=== PATIENT | female | born 1990 | race Caucasian/White ===

== ENCOUNTER 2023-09-16 10:59 | Outpatient (CLI) | payer OTHER, SELFPAY ==
--- NOTE | ~2023-09-16 | US_ITS ---
EXAMINATION: US thyroid DATE: 09/16/2023 11:50 INDICATION: Misty's thyroiditis TECHNIQUE: Multiple ultrasound images of the thyroid were obtained. COMPARISON: None. FINDINGS: The right thyroid lobe measures 4.3 x 1.6 x 1.2 cm. The left thyroid lobe measures 3.5 x 1.2 x 0 poi nt cm. The isthmus measures 0.3 cm. No discrete nodules identified. There is heterogeneously decreas ed echogenicity with coarsened echotexture. IMPRESSION: 1. Heterogeneous decreased axis and coarsened echotexture of the thyroid which would be consistent wi th given history of Misty's thyroiditis. No discrete thyroid nodules. Reviewed, dictated and finalized at location B. IMPRESSION: 1. Heterogeneous decreased axis and coarsened echotexture of the thyroid which would be consistent with given history of Misty's thyroiditis. No discrete thyroid nodules.
== END 2023-09-16 11:00 | disposition home or self-care (01) ==
LOC: ANHIMG 11:02
PROVIDERS: PCP Emergency Medicine; Visit Provider Emergency Medicine
DX: E06.3 Autoimmune thyroiditis (principal)
CPT/HCPCS: 76536

== ENCOUNTER 2023-11-06 11:19 | Emergency (ER) | payer OTHER, SELFPAY ==
[2023-11-06 11:20] VITALS: BP 141/97; PULSE 100; RESP 20; TEMP 36.6; O2SAT 100
--- NOTE | 2023-11-06 11:44 | ED.NAVMDI ---
HPI - Nausea/Vomiting/Diarrhea General Chief complaint: Nausea/Vomiting/Diarrhea Stated complaint: 12 weeks , vomiting, headache, discharge Time Seen by Provider: 11/06/23 11:32 Source: patient Mode of arrival: ambulatory Limitations: no limitations History of Present Illness HPI Narrative: This is a 32-year-old female that presents to the emergency department for nausea and vomiting. Ongoing over the last 5 days. Associated with cough, congestion, sore throat. She is currently 12 weeks . Her OB is Dr. Tanner. Denies fevers. Related Data Home Medications Medication Instructions Recorded Confirmed vits no.126-ferrous fum tablet PO 09/24/23 10/22/23 28 mg iron-folic acid 800 mcg tablet (Classic ) Allergies Allergy/AdvReac Type Severity Reaction Status Date / Time No Known Allergies Allergy Verified 10/22/23 10:00 Review of Systems Review of Systems: CONSTITUTIONAL: Denies fever ENT: Reports congestion, sore throat RESPIRATORY: Reports cough. Denies dyspnea. GASTROINTESTINAL: Reports nausea, vomiting GENITOURINARY: Denies dysuria NEUROLOGIC: Reports headache All systems reviewed & are unremarkable except as noted in HPI and below PMFSH Past Medical History Medical History History of Misty thyroiditis Scar tissue Third degree perineal laceration during delivery with tear of external anal sphincter and internal anal sphincter Family History Family History Father Hypertension Headache Angio-edema Mother Hypertension Headache Congenital defect History of PCOS Sibling Graves disease Autoimmune disorder Social History Social History Smoking status: Never smoker Second hand tobacco smoke exposure: No Alcohol intake: never Substance use: never Substance use type: does not use Do You Feel Safe in your Home?: Yes Lack of Transportation: No Lack of Food: Never True Current Housing: I Have Housing Concerned About Future Housing: No Difficulty Paying Gas/Electric Bills: No Difficulty Paying for Meds: No Currently Unemployed: No Education: Associate Degree Difficulty w/ Childcare or Family Care: No Living arrangements: with family Occupation/Education: unemployed Additional occupation/education comments: stay at home mother. Exam Narrative: GENERAL: Well-appearing, well-nourished, and in no acute distress. HEAD: Normocephalic, atraumatic. EYES: PERRLA and EOMI. ENT: Nares clear, no rhinorrhea or epistaxis. Mucous membranes moist. Oropharynx without tonsillar hypertrophy exudate or other lesions. Bilateral TMs pearly ly non-bulging NECK: Supple. No adenopathy or masses. CHEST: Clear to auscultation. No respiratory distress. No wheezes rales or rhonchi HEART: Regular rate and rhythm. No murmur heard. Normal peripheral pulses. ABDOMEN: Soft, nontender, nondistended, normal active bowel sounds. EXTREMITIES: Normal range of motion. No edema. SKIN: Warm, dry, no rash. NEURO: No focal deficits. Alert and oriented x3. PSYCH: Normal mood and affect Course Course Emergency Course: Patient feeling much better after IV fluids and Reglan. Able to tolerate p.o. challenge Consultations Consultation #1: Spoke with Dr. Tanner about patient and workup who recommends PROM test then patient may follow up in clinic Date: 11/06/23 Vital Signs Vital signs: Vital Signs Temperature 98 F 11/06/23 11:20 Pulse Rate 100 11/06/23 11:20 Respiratory Rate 20 11/06/23 11:20 Blood Pressure 141/97 H 11/06/23 11:20 Pulse Oximetry 100 11/06/23 11:20 Oxygen Delivery Room Air 11/06/23 11:20 Temperature 97.9 F 11/06/23 13:30 Pulse Rate 78 11/06/23 13:30 Respiratory Rate 16 11/06/23 13:30 Blood Pressure 126/80 11/06/23 13:30 Pulse Oximetry
[2023-11-06 11:58] LABS: Basophils Absolute Auto 0.1 K/mm3 (0.0-0.1); Basophils Percent Auto 0.5 % (0.2-1.2); Eosinophils Absolute Auto 0.1 K/mm3 (0-0.3); Eosinophils Percent Auto 0.8 % (0-4.4); Hematocrit 38.6 % (37.0-47.0); Hemoglobin 13.6 g/dL (12.0-15.0); Immature Granulocyte Absolute 0.05 K/mm3 (0.00-0.031); Immature Granulocyte Percent A 0.4 % (0-0.5); Lymphocytes Absolute Auto 1.46 K/mm3 (0.9-3.2); Lymphocytes Percent Auto 10.3 % (18.3-44.2); Mean Corpuscular HGB Conc 35.2 g/dl (32-36); Mean Corpuscular Hemoglobin 31.2 pg (26-34); Mean Corpuscular Volume 88.5 fl (80-100); Mean Platelet Volume 11.2 fl (7.4-10.4); Monocytes Absolute Auto 0.7 K/mm3 (0.1-0.6); Neutrophils Absolute Auto 11.7 K/mm3 (1.3-6.7); Platelet Count Result 254 k/mm3 (150-375); Red Blood Count 4.36 M/mm3 (4.2-5.4); Red Cell Distribution Width 13.1 % (11.5-14.5); White Blood Count 14.1 K/mm3 (4.5-10.0)
[2023-11-06 12:06] LABS: Add Urine Microscopic? YES; Appearance Urine Cloudy (Clear); Bacteria Urine None Seen /hpf; Bilirubin Urine Negative (Negative); Blood Urine Negative (Negative); Color Urine Yellow (Yellow); Glucose Urine UA Negative (Negative); Ketones Urine Negative (Negative); Leukocyte Esterase Ur Negative LEU/UL (Negative); Nitrate Urine Negative (Negative); Non Pathogenic Casts 0-2; Protein Urine 1+ mg/dL (Negative); Squamous Epithelial Cell Urine Moderate /hpf (Few); WBC Urine 0-5 /hpf (0-3); pH Urine 7.5 (5.0-9.0)
[2023-11-06 12:13] LABS: Alanine Aminotransferase 25 U/L (6-35); Albumin Level 4.3 g/dL (3.5-5.1); Alkaline Phosphatase 75 U/L (38-126); Anion Gap 12 mmol/L (4-12); Aspartate Amino Transferase 26 U/L (14-36); Bilirubin,Total 0.3 mg/dL (0.2-1.3); Blood Urea Nitrogen 7 mg/dL (7-17); Calcium 9.4 mg/dL (8.4-10.2); Carbon Dioxide 26 mmol/L (22-30); Chloride 97 mmol/L (98-107); Estimated CRCL calculation 127 ml/min; Estimated Glomerular Filt Rate > 60; Glucose 97 mg/dL (65-110); Lipase 80 U/L (23-300); Potassium 3.6 mmol/L (3.4-5.0); Sodium 135 mmol/L (137-145)
[2023-11-06 12:24] LABS: Strep Group A RT-PCR NOT DETECTED (Negative)
[2023-11-06] MEDS: SODIUM CHLORIDE 0.9% IV 1,000 ML 999 ML IV CONT (12:25)
[2023-11-06] MEDS: diphenhydrAMINE HCl INJ 50 MG/ML VIAL 25 MG IV PUSH (12:25)
[2023-11-06] MEDS: METOCLOPRAMIDE HCL INJ 10 MG/2 ML VIAL IV PUSH (12:25)
[2023-11-06] MEDS: ACETAMINOPHEN 500 MG TABLET 1000 MG PO (12:25)
[2023-11-06 12:26] LABS: Monoscreen Negative (Negative); Negative Monotest Control Negative (Negative); Positive Monotest Control Positive (Positive)
[2023-11-06 12:30] VITALS: BP 136/86; PULSE 86; RESP 16; TEMP 36.6; O2SAT 100
[2023-11-06 12:36] LABS: Influenza A QL RT-PCR Negative (Negative); Influenza B QL RT-PCR Negative (Negative); RSV RNA, RT-PCR Negative (Negative); SARS-CoV-2 RNA PCR Negative (Negative)
[2023-11-06 13:30] VITALS: BP 126/80; PULSE 78; RESP 16; TEMP 36.6; O2SAT 100
[2023-11-06 14:30] VITALS: BP 124/72; PULSE 76; RESP 16; TEMP 36.4; O2SAT 100
[2023-11-06 15:30] VITALS: BP 126/78; PULSE 76; RESP 16; TEMP 36.6; O2SAT 100
--- NOTE | 2023-11-06 15:43 | PC.NURSE ---
ROM plus test result was negative indicating no leakage of amniotic fluid.
--- NOTE | 2023-11-06 15:55 | PC.NURSE ---
tolerated drinking white soda. Has not had any emesis in the ED
== END 2023-11-06 16:02 | disposition home or self-care (01) ==
PROVIDERS: Emergency Provider Physician Assistant; PCP Emergency Medicine
DX: O98.511 Other viral diseases complicating pregnancy, first trimester (principal); B34.9 Viral infection, unspecified; Z20.822 Contact with and (suspected) exposure to COVID-19; Z3A.12 12 weeks gestation of pregnancy
CPT/HCPCS: 36415; 80053; 81001; 83690; 84112; 85025; 86308; 87637; 87651; 96374; 96375; 99284; A9270; J1200; J2765; J7030